=== PATIENT | female | born 1995 ===

== ENCOUNTER 2018-09-06 10:18 | Inpatient (IN) | payer OTHER ==
[~2018-09-06] VITALS: Ht 170.2 cm; Wt 68.9 kg
[2018-09-06] MEDS ORDERED: PRENATAL TABLE1 EAC4 (12:44)
== END 2018-09-08 11:37 | disposition home or self-care (01) | DRG 807 ==
LOC: OB/GYN 10:18 → LDR 10:18 → OB/GYN 21:12
PROVIDERS: ADMIT Obstetrics & Gynecology
PROC: 10E0XZZ Delivery of Products of Conception, External Approach (ICD-10-PCS; principal; 2018-09-06)
PROC: 4A0HXFZ Measurement of Products of Conception, Cardiac Rhythm, External Approach (ICD-10-PCS; 2018-09-06)
DX: O80 Encounter for full-term uncomplicated delivery (principal); Z37.0 Single live birth; Z3A.39 39 weeks gestation of pregnancy